=== PATIENT | male | born 2000 | race Caucasian/White ===

== ENCOUNTER 2020-07-06 10:00 | Outpatient (REF) | payer OTHER, SELFPAY ==
[2020-07-06 12:03] LABS: MANUAL DIFF FLAG NO
[2020-07-06 12:12] LABS: Basophils Percent Auto 0.9 % (0-2); Eosinophils Absolute Auto 0.1 X10*3/uL (0.0-0.4); Eosinophils Percent Auto 1.3 % (0-4); Hematocrit 43.6 % (42-52); Hemoglobin 14.6 g/dl (14.0-18.0); Imm Gran Abs Auto 0.01 X10*3/uL (0.00-0.03); Imm Gran Pct Auto 0.2 % (0.0-0.4); Lymphocytes Absolute Auto 1.5 X10*3/uL (1.2-4.9); Mean Corpuscular HGB Conc 33.5 g/dl (31.0-36.0); Mean Corpuscular Hemoglobin 30.5 pg (27.0-33.0); Mean Corpuscular Volume 91.2 fL (80-98); Mean Platelet Volume 10.5 fL (9.4-12.4); Monocytes Absolute Auto 0.4 X10*3/uL (0.1-1.2); Monocytes Percent Auto 7.7 % (2-11); Neutrophils Absolute Auto 2.8 X10*3/uL (2.0-8.3); Neutrophils Percent Auto 58.9 % (45-73); Platelet Count 273 X10*3/uL (160-400); Red Blood Count 4.78 X10*6/uL (4.60-5.80); Red Cell Distribution Width 12.3 % (11.0-16.0); White Blood Count 4.7 X10*3/uL (4.8-10.8)
[2020-07-06 12:41] LABS: Alanine Aminotransferase 15 U/L (0-40); Albumin Level 4.9 g/dL (3.5-5.0); Alkaline Phosphatase 68 U/L (39-117); Anion Gap 13 (12-20); Aspartate Amino Transferase 18 U/L (5-37); Bilirubin Total 0.5 mg/dL (0.0-1.0); Blood Urea Nitrogen 11 mg/dL (9-16); Calcium 9.9 mg/dL (8.4-10.2); Carbon Dioxide 27 mmol/L (22-29); Chloride 105 mmol/L (96-108); Cholesterol 163 mg/dL; Estimated Glomerular Filt Rate > 60; Glucose Fasting 83 mg/dL (60-99); HDL Cholesterol 34 mg/dL; LDL Cholesterol Calculated 115 mg/dl; Potassium 4.5 mmol/l (3.3-5.1); Sodium 140 mmol/L (135-145); Total Protein 7.5 g/dL (6.5-8.0); Triglycerides 73 mg/dL
[2020-07-06 13:07] LABS: Folate 12.2 ng/mL (> or = 4.0); Vitamin B12 414 pg/mL (200-900)
[2020-07-11 09:12] LABS: Levetiracetam Keppra 16.1 mcg/mL (12.0-46.0)
== END 2020-07-06 10:01 | disposition home or self-care (01) ==
LOC: HO.LAB 10:00
PROVIDERS: Absent Provider Internal Medicine; PCP Internal Medicine; Visit Provider Nurse Practitioner Family
DX: Z00.00 Encounter for general adult medical examination without abnormal findings (principal); E11.9 Type 2 diabetes mellitus without complications; R56.9 Unspecified convulsions; Z87.898 Personal history of other specified conditions
CPT/HCPCS: 36415; 80053; 80061; 80177; 82607; 82746; 85025

== ENCOUNTER 2020-10-09 09:10 | Outpatient (REF) | payer OTHER, SELFPAY ==
--- NOTE | ~2020-10-09 | MR_ITS ---
MR BRAIN WITHOUT AND WITH CONTRAST CLINICAL INFORMATION: Generalized seizure disorder. COMPARISON: None available TECHNIQUE: Multiplanar, multisequence MRI of the brain was obtained before and after the intravenous administration of 7.5 mL Gadavist. FINDINGS: There is no pathologic intracranial enhancement. There is the suggestion of nonenhancing increased signal on T2-weighted imaging within the hippocampi bilaterally without significant volume loss. There is no hydrocephalus, extra-axial surface collection, or herniation. The major flow voids at the skull base are preserved. There is no acute infarct on diffusion-weighted imaging. There is no intracranial hemorrhage on the gradient recalled echo acquisition. The midline structures are normal. The cerebellar tonsils are normally positioned. The cerebellum and brainstem are normal. The craniocervical junction is normal. Osseous marrow signal intensity is homogenous. The visualized soft tissues are unremarkable. There is a moderate sized fluid level within the right maxillary sinus and there is mild mucosal thickening within the ethmoid air cells bilaterally. The mastoid air cells are clear. Small retention cyst within the dominant right sphenoid sinus chamber. MR/MR head/brain wo/w con IMPRESSION: There is the suggestion of nonenhancing increased signal on T2-weighted imaging within the hippocampi bilaterally without significant volume loss. 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 Findings can be further assessed with 3 Joyce imaging and correlated for partial complex seizures.
== END 2020-10-09 09:11 | disposition home or self-care (01) ==
LOC: HO.MRI 09:10
PROVIDERS: Visit Provider Psychiatry & Neurology Neurology
DX: G40.309 Generalized idiopathic epilepsy and epileptic syndromes, not intractable, without status epilepticus (principal)
CPT/HCPCS: 70553; A9585

== ENCOUNTER 2021-04-24 10:35 | Emergency (ER) | payer OTHER, SELFPAY ==
--- NOTE | ~2021-04-24 | CT_ITS ---
EXAMINATION: CT HEAD WITHOUT CONTRAST CLINICAL INFORMATION: Severe headache. COMPARISON: None available at the moment for comparison. TECHNIQUE: Contiguous axial imaging was performed from the skull base to vertex without intravenous administration of contrast. This CT examination was performed using dose optimization techniques as appropriate, variously including the following: *Automated exposure control *Adjustment of mA and/or kV according to patient size (this includes techniques or standardized protocols for targeted exams where dose is matched to indication/reason for exam; i.e. extremities or head) *Use of iterative reconstruction technique DLP: 589.96 mGy-cm FINDINGS: There is no evidence of acute intracranial hemorrhage or territorial infarction. No abnormal mass effect or midline shift is seen. Spencer to white matter differentiation is well preserved. No extra-axial fluid collections are identified. The ventricles are normal in size. There is no abnormal attenuation within the brain parenchyma. The osseous structures and soft tissues are normal. The mastoid air cells are unremarkable. Mild mucoperiosteal thickening is present at the sphenoid sinus, consistent with mild sinusitis. CT/CT head/brain wo con IMPRESSION: No acute intracranial pathology. Mild sphenoidal sinusitis.
[2021-04-24 11:03] VITALS: BP 154/96; PULSE 83; RESP 24; TEMP 36.6; O2SAT 98; BMI 24.9
--- NOTE | 2021-04-24 11:51 | ED.HA ---
HPI - Headache General Chief Complaint: Headache Stated Complaint: headache Time Seen by Provider: 04/24/21 11:41 Source: patient and family (Mother) Mode of arrival: ambulatory History of Present Illness HPI Narrative: 20-year-old male came in for evaluation of sudden headache. 20-year-old male [place] the mall with his mother about an hour before coming to the emergency department started to have a sudden onset of headache, otherwise decline photophobia, no nausea, no vomiting, no neck pain or stiffness. Patient had headaches in the past but not that severe, patient also is known history of seizure, patient had a recent hospitalization at [facility] (records were requested). Patient declined using IV drugs, admits to smoking only marijuana. Related Data Previous Rx's Medication Instructions Recorded levetiracetam 500 mg tablet 500 mg PO BID #60 tab 07/28/20 amoxicillin 875 mg-potassium 1 tab PO BID #20 tab 04/24/21 clavulanate 125 mg tablet (Augmentin) Allergies Allergy/AdvReac Type Severity Reaction Status Date / Time No Known Allergies Allergy Verified 12/12/20 14:32 Review of Systems Review of Systems: All other systems are reviewed and are negative Constitutional: Reports as per HPI and Reports no additional constitutional complaints Eyes: Reports as per HPI and Reports no additional eye complaints Reports system reviewed and no additional complaints, except as documented Cardiovascular: Reports as per HPI and Reports no additional cardiovascular complaints Respiratory: Reports as per HPI and Reports no additional respiratory complaints Gastrointestinal: Reports as per HPI and Reports no additional gastrointestinal complaints Genitourinary: Reports no additional female genitourinary complaints Musculoskeletal: Reports no additional musculoskeletal complaints Skin/Breast: Reports system reviewed and no additional complaints, except as docu Psychiatric: Reports no additional psychiatric complaints Endocrine: Reports no additional endocrine complaints Hematologic/Lymphatic: Reports no additional hematologic/lymphatic complaints Allergic/Immunologic: Reports no additional allergic/immunologic complaints Reports system reviewed and no additional complaints, except as documented and Reports Abnormal speech present [facility] Past Medical History Medical History Seizure Surgical History No significant past surgical history Family History Family History Father No problems noted. Mother No problems noted. Social History Social History Housing: Apartment Alcohol intake: never Patient Tobacco Use Status: Never used Tobacco Second Hand Smoke Exposure: No Use of substances other than those prescribed or required for medical reasons: No Advance Directives: No Advance Directives Information Provided: No Current occupational status: employed Physical Exam Vital Signs: Vital Signs: Last Vital Signs Temp 97.9 F 04/24/21 11:03 Pulse 83 04/24/21 11:03 Resp 24 H 04/24/21 11:03 BP 154/96 H 04/24/21 11:03 Pulse Ox 98 04/24/21 11:03 Body Mass Index 24.9 Vital signs have been reviewed as appeared to be correct. Blood pressure normal. Heart rate normal. Respiration rate normal. Temperature normal. Oxygen saturation normal. Appearance: Alert. Oriented X3. No acute distress. Head: Normal external exam. Normocephalic. Atraumatic. No Austin signs noted. No raccoon eyes noted Eyes: PERRLA. EOMI. Conjunctiva and sclera normal. Eyelids normal. ENT: TM's Normal. Pharynx normal. Uvula midline. Moist mucous membranes. No trismus noted. No drooling noted. No muffled voice noted. Neck: Normal inspection. Neck supple. FROM. No adenopathy. Thyroid Normal. No meningeal signs. No neck mass noted. CVS: Normal heart rate and rhythm. Heart sound normal. No murmurs noted. Pulses normal throughout. Respiratory: No respiratory distress. Painless inspiration. Breath sounds normal. No wheezes/rales/rhonchi noted. Chest nontender. No accessory muscle usage noted or decreased air movement noted. Abdomen: Soft and nontender. Bowel sounds normal in all 4 quadrants. No distention noted. No organomegaly noted. No visible injury noted. Back: No CVA tenderness. Full range of motion noted. Skin: Skin warm and dry. Normal skin color. Normal skin turgor. No rashes/lesions/lacerations noted. Extremities: No lower extremity edema. Extremities exhibit normal range of motion. Extremities nontender. Neuro: Oriented X 3. Cranial nerve exam: II-XII are grossly intact No motor deficit. No sensory deficit. Reflexes normal. Course Course Course Narrative: 20-year-old male came in with his mom for evaluation of a sudden headache, patient recently diagnosed with new onset of seizure and require hospitalization at [facility] (to request for the medical record were faxed to [facility] several times with no response). Patient's blood workup revealed leukocytosis of 20,000 CT of the head showed no SAH, no acute intracranial pathology, mild sphenoidal sinusitis. Patient had a neurology appointment this morning and patient's medication of Keppra was increased to 1000 mg b.i.d. to control his seizure. Start the patient on Augmentin for sphenoidal sinusitis. MDM - Headache Lab Data Attestation: I reviewed the patient's lab results. Result diagrams: 04/24/21 12:02 04/24/21 12:02 Labs: Lab Results 04/24/21 04/24/21 Range/Units 12:02 12:02 WBC 20.1 H (4.8-10.8) X10*3/uL RBC 4.96 (4.60-5.80) X10*6/uL Hgb 15.1 (14.0-18.0) g/dl Hct 44.2 (42.0-52.0) % MCV 89.1 (80.0-98.0) fL MCH 30.4 (27.0-33.0) pg MCHC 34.2 (31.0-36.0) g/dl RDW 11.8 (11.0-16.0) % Plt Count 401 H (160-400) X10*3/uL MPV 9.8 (9.4-12.4) fL Immature Gran % (Auto) 0.6 H (0.0-0.4) % Neut % (Auto) 83.3 H (45-73) % Lymph % (Auto) 9.7 L (20-40) % Twiggs % (Auto) 5.9 (2-11) % Eos % (Auto) 0.2 (0-4) % Baso % (Auto) 0.3 (0-2) % Lymph # (Auto) 2.0 (1.2-4.9) X10*3/uL Twiggs # (Auto) 1.2 (0.1-1.2) X10*3/uL Eos # (Auto) 0.1 (0.0-0.4) X10*3/uL Baso # (Auto) 0.1 (0.0-0.2) X10*3/uL Abs Immat Gran (auto) 0.13 H (0.00-0.03) X10*3/uL Absolute Neuts (auto) 16.7 H (2.0-8.3) x10*3/uL Absolute Nucleated RBC 0.000 (0.0-0.012) X10*3/uL Nucleated RBC % (auto) 0.0 (0.0-0.2) /100WBC Sodium 137 (135-145) mmol/L Potassium 3.9 (3.3-5.1) mmol/L Chloride 102 (96-108) mmol/L Carbon Dioxide 25 (22-29) mmol/L Anion Gap 14 (12-20) BUN 14 (9-16) mg/dL Creatinine 0.87 (0.5-1.4) mg/dL Estim Creat Clear Calc 113.4 Estimated GFR > 60 Random Glucose 163 H (60-115) mg/dL Calcium 9.9 (8.4-10.2) mg/dL Lipase 23 (8-78) U/L Imaging Data CT scan - head: Radiologist's impression: No acute intracranial pathology. Mild sphenoidal sinusitis. Discharge Plan Discharge Clinical Impression: Headache, Sinusitis, Leukocytosis Patient Disposition: Home, Self-Care Instructions: Sinusitis (ED), Acute Headache (ED) Prescriptions: New amoxicillin-pot clavulanate [Augmentin] 875-125 mg tablet 1 tab PO BID Qty: 20 RF: 0 No Action levetiracetam 500 mg tablet 500 mg PO BID Qty: 60 RF: 8 Referrals: Clifford Garcia MD [Primary Care Provider] - 2 days
[2021-04-24] MEDS: 0.9 % Sodium Chloride 1,000 ML 999 ML IVCONT (12:05)
[2021-04-24] MEDS: ondansetron HCL 4 MG/2 ML VIAL IVPUSH (12:05)
[2021-04-24] MEDS: diphenhydrAMINE HCL 50 MG/ML VIAL 25 MG IVPUSH (12:05)
[2021-04-24 12:07] LABS: MANUAL DIFF FLAG NO
[2021-04-24 12:09] LABS: Basophils Absolute Auto 0.1 X10*3/uL (0.0-0.2); Basophils Percent Auto 0.3 % (0-2); Eosinophils Absolute Auto 0.1 X10*3/uL (0.0-0.4); Eosinophils Percent Auto 0.2 % (0-4); Hematocrit 44.2 % (42.0-52.0); Hemoglobin 15.1 g/dl (14.0-18.0); Imm Gran Abs Auto 0.13 X10*3/uL (0.00-0.03); Imm Gran Pct Auto 0.6 % (0.0-0.4); Lymphocytes Percent Auto 9.7 % (20-40); Mean Corpuscular HGB Conc 34.2 g/dl (31.0-36.0); Mean Corpuscular Hemoglobin 30.4 pg (27.0-33.0); Mean Corpuscular Volume 89.1 fL (80.0-98.0); Mean Platelet Volume 9.8 fL (9.4-12.4); Monocytes Absolute Auto 1.2 X10*3/uL (0.1-1.2); Monocytes Percent Auto 5.9 % (2-11); Neutrophils Absolute Auto 16.7 x10*3/uL (2.0-8.3); Neutrophils Percent Auto 83.3 % (45-73); Platelet Count 401 X10*3/uL (160-400); Red Blood Count 4.96 X10*6/uL (4.60-5.80); Red Cell Distribution Width 11.8 % (11.0-16.0); White Blood Count 20.1 X10*3/uL (4.8-10.8)
[2021-04-24 12:23] LABS: Anion Gap 14 (12-20); Blood Urea Nitrogen 14 mg/dL (9-16); Calcium 9.9 mg/dL (8.4-10.2); Carbon Dioxide 25 mmol/L (22-29); Chloride 102 mmol/L (96-108); Creatinine Clr Calc Pharmacy 113.4; Estimated Glomerular Filt Rate > 60; Glucose Random 163 mg/dL (60-115); Lipase 23 U/L (8-78); Potassium 3.9 mmol/L (3.3-5.1); Sodium 137 mmol/L (135-145)
[2021-04-24] MEDS: Butalb/Acetamin/Caff 50/325/40 TABLET 1 TAB PO (14:02)
[2021-04-24] MEDS: Acetaminophen 325 MG TABLET 650 MG PO (14:03)
== END 2021-04-24 15:30 | disposition home or self-care (01) ==
PROVIDERS: Emergency Provider Emergency Medicine; PCP Internal Medicine
DX: R51.9 Headache, unspecified (principal); J32.9 Chronic sinusitis, unspecified; D72.829 Elevated white blood cell count, unspecified
CPT/HCPCS: 36415; 70450; 80048; 83690; 85025; 96361; 96374; 96375; 99284; J1200; J2405

== ENCOUNTER 2022-10-28 13:00 | Outpatient (REF) | payer OTHER, SELFPAY ==
[2022-10-28 13:16] LABS: MANUAL DIFF FLAG NO
[2022-10-28 14:30] LABS: Basophils Absolute Auto 0.1 X10*3/uL (0.0-0.2); Basophils Percent Auto 0.7 % (0-2); Eosinophils Absolute Auto 0.2 X10*3/uL (0.0-0.4); Eosinophils Percent Auto 2.2 % (0-4); Hematocrit 43.4 % (42.0-52.0); Hemoglobin 14.6 g/dl (14.0-18.0); Imm Gran Abs Auto 0.03 X10*3/uL (0.00-0.03); Imm Gran Pct Auto 0.4 % (0.0-0.4); Lymphocytes Absolute Auto 1.8 X10*3/uL (1.2-4.9); Lymphocytes Percent Auto 27.2 % (20-40); Mean Corpuscular HGB Conc 33.6 g/dl (31.0-36.0); Mean Corpuscular Volume 95.2 fL (80.0-98.0); Mean Platelet Volume 10.7 fL (9.4-12.4); Monocytes Absolute Auto 0.8 X10*3/uL (0.1-1.2); Monocytes Percent Auto 11.8 % (2-11); Neutrophils Absolute Auto 3.9 x10*3/uL (2.0-8.3); Neutrophils Percent Auto 57.7 % (45-73); Platelet Count 276 X10*3/uL (160-400); Red Blood Count 4.56 X10*6/uL (4.60-5.80); Red Cell Distribution Width 13.7 % (11.0-16.0); White Blood Count 6.8 X10*3/uL (4.8-10.8)
[2022-10-28 15:19] LABS: Valproate 82.3 mcg/mL (50.0-100.0)
[2022-10-28 15:21] LABS: Alanine Aminotransferase 18 U/L (0-40); Albumin Level 4.4 g/dL (3.5-5.0); Alkaline Phosphatase 50 U/L (39-117); Anion Gap 12 (12-20); Aspartate Amino Transferase 18 U/L (5-37); Bilirubin Total 0.6 mg/dL (0.0-1.0); Blood Urea Nitrogen 11 mg/dL (9-16); Calcium 9.6 mg/dL (8.4-10.2); Carbon Dioxide 26 mmol/L (22-29); Chloride 107 mmol/L (96-108); Estimated Glomerular Filt Rate > 60; Glucose Random 67 mg/dL (60-115); Potassium 4.8 mmol/L (3.3-5.1); Sodium 140 mmol/L (135-145); Total Protein 6.8 g/dL (6.5-8.0)
== END 2022-10-28 13:01 | disposition home or self-care (01) ==
LOC: HO.LAB 13:00
PROVIDERS: PCP Internal Medicine; Visit Provider Nurse Practitioner Family
DX: R56.9 Unspecified convulsions (principal); Z79.899 Other long term (current) drug therapy
CPT/HCPCS: 36415; 80053; 80164; 82550; 85025

== ENCOUNTER 2023-05-27 14:13 | Outpatient (REF) | payer OTHER, SELFPAY ==
[2023-05-27 15:33] LABS: Valproate 92.4 mcg/mL (50.0-100.0)
[2023-05-27 15:34] LABS: Alanine Aminotransferase 11 U/L (0-40); Albumin Level 4.3 g/dL (3.5-5.0); Alkaline Phosphatase 44 U/L (39-117); Aspartate Amino Transferase 17 U/L (5-37); Bilirubin Direct 0.1 mg/dL (0.0-0.5); Bilirubin Total 0.3 mg/dL (0.0-1.0); Total Protein 6.8 g/dL (6.5-8.0)
== END 2023-05-27 14:14 | disposition home or self-care (01) ==
LOC: HO.LAB 14:13
PROVIDERS: PCP Internal Medicine; Visit Provider Psychiatry & Neurology Neurology
DX: G40.309 Generalized idiopathic epilepsy and epileptic syndromes, not intractable, without status epilepticus (principal)
CPT/HCPCS: 36415; 80076; 80164

== ENCOUNTER 2023-12-01 13:45 | Outpatient (AMB) | payer OTHER, SELFPAY ==
[2023-12-01 13:48] VITALS: BP 110/60; PULSE 80; O2SAT 98; BMI 24.7
--- NOTE | 2023-12-01 13:48 | MHC.PC.OV ---
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 Real Estate Office: Not Required per policy Accompanied by: Self / Same As Patient Allergies No Known Allergies Allergy (Verified 12/01/23 13:48) Medication List - Last Reconciled 12/02/23 by Clifford Garcia MD divalproex 500 mg PO BID divalproex ER mg PO BID Tobacco use date assessed: 12/01/23 Dental Screening Dental Screen Date: 12/01/23 Did you have a dental visit in the last 12 months?: No Did you have a dental problem in the last 6 months where you did not have access to dental care?: No Was dental information given to patient?: Patient has dentist HPI ANNUAL PE - NEEDS PHQ9 HPI Details sz disorder; sees neuro PFSH Medical History Seizure Surgical History No significant past surgical history Family History Father No problems noted. Mother No problems noted. Social History Housing: Apartment Alcohol intake: never Patient Tobacco Use Status: Never used Tobacco e-Cigarette/Vaping Use: Never Used Second Hand Smoke Exposure: No service: No Current occupational status: employed Cognitive needs: No Hearing needs: No Vision needs: Yes (glasses) Questionnaire PHQ-9 Over the last 2 weeks, how often have you been bothered by any of the following problems? 1. Little interest or pleasure in doing things: not at all 2. Feeling down, depressed, or hopeless: not at all 3. Trouble falling or staying asleep, or sleeping too much: not at all 4. Feeling tired or having little energy: not at all 5. Poor appetite or overeating: not at all 6. Feeling bad about yourself - or that you are a failure or have let yourself or your family down: not at all 7. Trouble concentrating on things, such as reading the newspaper or watching television: not at all 8. Moving or speaking so slowly that other people could have noticed. Or the opposite - being so fidgety or restless that you have been moving around a lot more than usual: not at all 9. Thoughts that you would be better off or of hurting yourself in some way: not at all Total score: 0 Depression Screening Interpretation: Negative Depression Screening Done: Yes 16053 - PHQ-9 Billing: Yes Source: Developed by Drs. Ben Osullivan, Jaqui Delgado, Garland Villa and colleagues, with an educational stuart from [employer]. Thrive Questionnaire Date Thrive assessed: 12/01/23 I am a: Patient What is your living situation today?: I have a steady place to live Within the past 12 months, did the food you bought not last and you didn't have the money to get more?: Never true Within the past 12 months, did you worry whether your food would run out before you got money to buy more?: Never true Do you have trouble paying for medicines?: No Do you have trouble getting transportation to medical appointments?: No Do you have trouble paying your heating and electricity bill?: No Do you have trouble taking care of your child, family member or friend?: No Do you have trouble with day-to-day activities such as bathing, preparing meals, shopping, managing finances, etc.?: No Are you currently unemployed and looking for a job?: No Are you interested in more education?: No Please select the resources that you would like help with: None THRIVE Score: 0 AUDIT C Alcohol Use Questionnaire (AUDIT-C) 1. How often do you have a drink containing alcohol?: Never Total Score: 0 Score Reviewed/Action Taken: No ROBYN-7 AMB Questionnaire ROBYN-7 Date ROBYN - 7 assessed: 12/01/23 Feeling nervous, anxious, or on edge: 0 = Not at all Not being able to stop or control worryin = Not at all Worrying too much about different things: 0 = Not at all Trouble relaxin = Not at all Being so restless that it is hard to sit still: 0 = Not at all Becoming easily annoyed or irritable: 0 = Not at all Feeling afraid as if something awful might happen: 0 = Not at all Total ROBYN-7 score (0-4 normal; 5-9 mild; 10-14 moderate; 15-21 severe): 0 Source: Developed by Drs. Ben Osullivan, Jaqui Delgado, Garland Villa and colleagues, with an educational stuart from [employer]. ROBYN-7 Assessment Billing ROBYN-7 Assessment Tool: ROBYN-7 Assessment 63567 Review of Systems Const Denies chills, Denies fatigue, Denies headache(s) and Denies weight loss Eyes Denies change in vision, Denies diplopia and Denies eye pain ENT Denies vertigo, Denies dizziness, Denies headache(s) and Denies nasal discharge Card Denies chest pain, Denies rapid heart rate and Denies dyspnea on exertion Resp Denies chest congestion, Denies cough, Denies pain with cough and Denies dyspnea on exertion GI Denies abdominal pain, Denies hematochezia and Denies change in bowel habits Musc Denies myalgias, Denies arthralgias and Denies joint swelling Skin/Breast Denies lesions and Denies unusual bruising Neuro Denies vertigo, Denies dizziness, Denies headache(s) and Denies focal weakness Endo Denies fatigue Physical exam (Primary Care) Vital Signs: Last Vital Signs Pulse 80 12/01/23 13:48 BP 110/60 12/01/23 13:48 Pulse Ox 98 12/01/23 13:48 Oxygen Delivery Method Room Air 12/01/23 13:48 BMI result Body Mass Index 24.7 Tobacco/Smoking Status: Tobacco use Status Tobacco use date assessed 12/01/23 12/01/23 13:49 Patient Tobacco Use Status Never used Tobacco 12/01/23 13:49 e-Cigarette/Vaping Use Never Used 12/01/23 13:49 PHQ-9: PHQ-9 Score PHQ-9: Total score 0 12/01/23 13:49 Depression Screening Interpretation: Negative Thrive Assessment: Date of Thrive Assessment Date Thrive assessed 12/01/23 12/01/23 13:49 Const General: cooperative, healthy appearing and no acute distress Orientation/consciousness: oriented to person, oriented to place and oriented to time HENMT Head: Yes normal to inspection, Yes normocephalic and Yes atraumatic Mouth: Normal oral and palatal mucosa present and tongue normal Throat: Yes posterior oropharynx normal and Yes uvula midline Eyes General: appearance normal, both eyes and all related structures Neck Neck: Yes normal visual inspection, Yes full ROM and Yes no lymphadenopathy Thyroid: Thyroid normal Carotids: normal carotid upstroke Chest Chest palpation & inspection: normal inspection of the chest Resp Effort & Inspection: normal respiratory effort and able to speak in complete sentences Auscultation: clear to auscultation bilaterally Cardio Jugular venous distension: no JVD Palpation: normal PMI Rate: regular rate Rhythm: regular rhythm Heart sounds: S1 normal heart sound present and S2 normal heart sound present GI Inspection: Yes normal to inspection Palpation (GI): Soft to palpation and No hepatosplenomegaly present Auscultation: normal bowel sounds General: Yes no CVA tenderness Back/Spine/Pelvis Back: no CVA tenderness Skin General skin exam: no rashes or lesions noted Neuro General: oriented to person, oriented to place and oriented to time Extrem General: Yes normal to inspection and Yes full ROM Assessment and Plan Assessment & Plan (1) Physical exam: Code(s): Z00.00 - Encounter for general adult medical examination without abnormal findings Plan: stable; do labs (2) Seizure: Code(s): R56.9 - Unspecified convulsions Plan: stable; per neuro;ogy Orders: Orders Complete Blood Count Auto Diff Today Z13.0 - Encounter for screening for diseases of the blood and blood-forming organs and certain disorders involving the immune mechanism Lipid Panel Today Z13.220 - Encounter for screening for lipoid disorders Comprehensive [place]. Panel Fast Today Z13.9 - Encounter for screening, unspecified Coding Level of Care Code Est Pt Prev Care 18-39y(00272) Diagnoses Physical exam Z00.00 Seizure R56.9 Additional Codes ROBYN-7 Assessment Billing - ROBYN-7 Assessment Tool: ROBYN-7 Assessment 22725 ([id number])
== END 2023-12-01 14:04 | disposition home or self-care (01) ==
PROVIDERS: PCP Internal Medicine; Visit Provider Internal Medicine
DX: Z00.00 Encounter for general adult medical examination without abnormal findings (principal); R56.9 Unspecified convulsions
CPT/HCPCS: 99395

== ENCOUNTER 2024-07-26 12:52 | Outpatient (AMB) | payer OTHER, SELFPAY ==
--- NOTE | 2024-07-26 12:59 | MHC.PC.OV ---
Vital Signs 07/26/24 13:01 Height 5 ft 4 in Weight 148 lb BMI 25.4 BP 120/60 Blood Pressure Location Lt brachial Position Sitting Temp 97.1 F Temp Source Skin Intake Visit Reasons: Multiple seizures/FMLA paperwork Intake Note: Patient is here to follow up on Multiple seizures and FMLA paperwork. Passenger Elevator Operator Required: No Photography Colorist: Present Accompanied by: Mother Allergies No Known Allergies Allergy (Verified 07/26/24 13:01) Medication List - Last Reconciled 07/26/24 by Clifford Garcia MD divalproex 500 mg PO BID divalproex ER mg PO BID lacosamide 200 mg PO BID Tobacco use date assessed: 07/26/24 Dental Screening Dental Screen Date: 07/26/24 Did you have a dental visit in the last 12 months?: No Did you have a dental problem in the last 6 months where you did not have access to dental care?: No Was dental information given to patient?: No HPI Multiple seizures/FMLA paperwork HPI Details has Sz disorder with poorly controlled Sz; has appt in [place] this month [facility] Medical History Seizure Surgical History No significant past surgical history Family History Father No problems noted. Mother No problems noted. Social History (Updated 07/26/24 @ 13:05 by JESSICA Landa) Housing: Apartment Alcohol intake: never Patient Tobacco Use Status: Never used Tobacco e-Cigarette/Vaping Use: Never Used Second Hand Smoke Exposure: No Substance Use Type: Marijuana service: No Current occupational status: employed Cognitive needs: No Hearing needs: No Vision needs: Yes (glasses) Questionnaire PHQ-9 Over the last 2 weeks, how often have you been bothered by any of the following problems? 1. Little interest or pleasure in doing things: not at all 2. Feeling down, depressed, or hopeless: not at all 3. Trouble falling or staying asleep, or sleeping too much: not at all 4. Feeling tired or having little energy: not at all 5. Poor appetite or overeating: not at all 6. Feeling bad about yourself - or that you are a failure or have let yourself or your family down: not at all 7. Trouble concentrating on things, such as reading the newspaper or watching television: not at all 8. Moving or speaking so slowly that other people could have noticed. Or the opposite - being so fidgety or restless that you have been moving around a lot more than usual: not at all 9. Thoughts that you would be better off or of hurting yourself in some way: not at all Total score: 0 Depression Screening Interpretation: Negative Depression Screening Done: Yes Source: Developed by Drs. Ben Osullivan, Jaqui Delgado, Garland Villa and colleagues, with an educational stuart from [employer]. Thrive Questionnaire Date Thrive assessed: 07/26/24 I am a: Patient What is your living situation today?: I have a steady place to live Within the past 12 months, did the food you bought not last and you didn't have the money to get more?: Never true Within the past 12 months, did you worry whether your food would run out before you got money to buy more?: Never true Do you have trouble paying for medicines?: No Do you have trouble getting transportation to medical appointments?: No Do you have trouble paying your heating and electricity bill?: No Do you have trouble taking care of your child, family member or friend?: No Do you have trouble with day-to-day activities such as bathing, preparing meals, shopping, managing finances, etc.?: No Are you currently unemployed and looking for a job?: No Are you interested in more education?: No Please select the resources that you would like help with: None Currently or been in a relationship where the following occur: No concerns reported THRIVE Score: 0 AUDIT C Alcohol Use Questionnaire (AUDIT-C) 1. How often do you have a drink containing alcohol?: Never Total Score: 0 ROBYN-7 AMB Questionnaire ROBYN-7 Date ROBYN - 7 assessed: 07/26/24 Feeling nervous, anxious, or on edge: 0 = Not at all Not being able to stop or control worryin = Not at all Worrying too much about different things: 0 = Not at all Trouble relaxin = Not at all Being so restless that it is hard to sit still: 0 = Not at all Becoming easily annoyed or irritable: 0 = Not at all Feeling afraid as if something awful might happen: 0 = Not at all Total ROBYN-7 score (0-4 normal; 5-9 mild; 10-14 moderate; 15-21 severe): 0 Source: Developed by Drs. Ben Osullivan, Jaqui Delgado, Garland Villa and colleagues, with an educational stuart from [employer]. Review of Systems Const Denies chills, Denies headache(s) and Denies weight loss ENT Denies headache(s) Card Denies chest pain, Denies syncope, Denies irregular heart rhythm and Denies dyspnea Resp Denies chest congestion, Denies cough and Denies dyspnea GI Denies abdominal pain, Denies change in stool character, Denies nausea and Denies vomiting Musc Denies deformity and Denies joint swelling Neuro Denies syncope and Denies headache(s) Physical exam (Primary Care) Vital Signs: Last Vital Signs Temp 97.1 F 07/26/24 13:01 BP 120/60 07/26/24 13:01 BMI result Body Mass Index 25.4 Tobacco/Smoking Status: Tobacco use Status Tobacco use date assessed 07/26/24 07/26/24 13:07 Patient Tobacco Use Status Never used Tobacco 07/26/24 13:07 e-Cigarette/Vaping Use Never Used 07/26/24 13:07 PHQ-9: PHQ-9 Score PHQ-9: Total score 0 07/26/24 13:27 Depression Screening Interpretation: Negative Thrive Assessment: Date of Thrive Assessment Date Thrive assessed 07/26/24 07/26/24 13:07 Currently or been in a relationship where the following occur: No concerns reported Const General: cooperative, comfortable, no acute distress and alert Neck Neck: Yes no lymphadenopathy Thyroid: Thyroid normal Resp Effort & Inspection: normal respiratory effort Auscultation: clear to auscultation bilaterally Percussion: percussion normal Cardio Jugular venous distension: no JVD Palpation: normal PMI Rate: regular rate Rhythm: regular rhythm Heart sounds: S1 normal heart sound present and S2 normal heart sound present GI Inspection: Yes normal to inspection Palpation (GI): No hepatosplenomegaly present Skin General skin exam: no rashes or lesions noted Extrem General: Yes no clubbing, cyanosis or edema Coding Level of Care Code Est Pt Level 3 (16659) Diagnoses Seizure R56.9 Assessment & Plan Assessment & Plan (1) Seizure: Code(s): R56.9 - Unspecified convulsions Category: Medical Plan: stable; as per neuro
[2024-07-26 13:01] VITALS: BP 120/60; TEMP 36.2; BMI 25.4
== END 2024-07-26 13:26 | disposition home or self-care (01) ==
PROVIDERS: PCP Internal Medicine; Visit Provider Internal Medicine
DX: R56.9 Unspecified convulsions (principal)

== ENCOUNTER → 2024-07-26 12:52 | Outpatient (BNVA) | payer OTHER, SELFPAY | PROVIDERS: PCP Internal Medicine; Visit Provider Internal Medicine | DX: R56.9 Unspecified convulsions (principal) | CPT/HCPCS: 99212 ==

== ENCOUNTER 2024-10-18 12:59 | Outpatient (REF) | payer OTHER, SELFPAY ==
--- OUTSIDE RECORDS SUMMARY | 2024-10-19 12:27 | XMS_ITS | Clinical Summary ---
Author Organization [address] [facility] Address [address] [place] [address] Phone Care Team Providers Care Wellness Manager Name Role Phone Physician, No Pcp Primary [...] age to complete this topic Care Teams Wellness Manager Relationship Specialty Start Date End Date Physician, No Pcp PCP - General 04/19/24
== END 2024-10-18 13:00 | disposition home or self-care (01) ==
LOC: HO.LAB 12:59
DX: R56.9 Unspecified convulsions (principal)
CPT/HCPCS: 99212

== ENCOUNTER 2024-10-18 12:59 | Outpatient (AMB) | payer OTHER, SELFPAY ==
--- NOTE | 2024-10-18 13:13 | MHC.PC.OV ---
Vital Signs 10/18/24 13:15 Height 5 ft 4 in Weight 14 lb 2 oz BMI 2.4 BP 110/70 Blood Pressure Location Lt brachial Position Sitting Pulse 72 Pulse Source Pulse Oximeter Temp 97.7 F Temp Source Temporal Artery Scan Pulse Oximetry (%) 98 Oxygen Delivery Method Room Air Intake Visit Reasons: VASYL DR Garcia Intake Note: Patient is here today for VASYL from Dr Garcia Hspt Tutor Required: No Lead Performance Support Analyst: Present Accompanied by: Mother Allergies No Known Allergies Allergy (Verified 10/18/24 13:22) Medication List - Last Reconciled 10/18/24 by GENESIS Woody divalproex 500 mg PO BID divalproex ER mg PO BID lacosamide 200 mg PO BID perampanel (Fycompa) 2 mg PO DAILY Tobacco use date assessed: 10/18/24 Dental Screening Dental Screen Date: 07/26/[address] Garcia HPI Details The patient is transitioning care from Dr. Garcia, who retired The patient is a 24-year-old male presenting for follow-up concerning his generalized seizure disorder. The seizures have been ongoing since age 19, usually presenting without known triggers or antecedent trauma. They predominantly manifest as generalized convulsions, though focal seizures are noted to occur sporadically. He experiences rare premonitory symptoms including sensations of d?j?-vu and involuntary lip-chewing. A recent seizure occurred four days ago amidst a routine activity at home, resulting in disorientation and involuntary behavior. Despite medical interventions including diagnostic MRI and EEG, the etiology remains unclear. Adjustments in his seizure management regimen involve an increase in lacosamide dose and initiation of an emergency nasal spray. The patient has significantly minimized alcohol intake from previously heavy usage, recognizing its potential impact on seizure exacerbation. His current lifestyle includes moderate alcohol consumption correlating with reduced seizure frequency. Stress and insufficient sleep are identified as possible exacerbating factors, though recent modifications have yielded improved control over his condition. The patient has been consulting Dr. Celine Crocker in [place], who prescribed Nayzilam for him. He has following up appt on 11/10/24. [facility] Medical History Seizure Surgical History No significant past surgical history Family History Father No problems noted. Mother No problems noted. Social History (Updated 10/18/24 @ 13:20 by JESSICA Landa) Housing: Apartment Alcohol intake: never Patient Tobacco Use Status: Never used Tobacco e-Cigarette/Vaping Use: Currently Using Second Hand Smoke Exposure: No Substance Use Type: Marijuana service: No Current occupational status: employed Cognitive needs: No Hearing needs: No Vision needs: Yes (glasses) Questionnaire PHQ-9 Over the last 2 weeks, how often have you been bothered by any of the following problems? 1. Little interest or pleasure in doing things: several days 2. Feeling down, depressed, or hopeless: not at all 3. Trouble falling or staying asleep, or sleeping too much: more than half the days 4. Feeling tired or having little energy: not at all 5. Poor appetite or overeating: not at all 6. Feeling bad about yourself - or that you are a failure or have let yourself or your family down: more than half the days 7. Trouble concentrating on things, such as reading the newspaper or watching television: not at all 8. Moving or speaking so slowly that other people could have noticed. Or the opposite - being so fidgety or restless that you have been moving around a lot more than usual: not at all 9. Thoughts that you would be better off or of hurting yourself in some way: not at all Total score: 5 Depression Screening Interpretation: Positive Depression Screening Done: Yes Source: Developed by Drs. Ben Osullivan, Jaqui Delgado, Garland Villa and colleagues, with an educational stuart from [employer]. Thrive Questionnaire Date Thrive assessed: 07/26/24 I am a: Patient What is your living situation today?: I have a steady place to live Within the past 12 months, did the food you bought not last and you didn't have the money to get more?: Sometimes True Within the past 12 months, did you worry whether your food would run out before you got money to buy more?: Sometimes True Do you have trouble paying for medicines?: No Do you have trouble getting transportation to medical appointments?: No Do you have trouble paying your heating and electricity bill?: I choose not to answer this question Do you have trouble taking care of your child, family member or friend?: I choose not to answer this question Do you have trouble with day-to-day activities such as bathing, preparing meals, shopping, managing finances, etc.?: No Are you currently unemployed and looking for a job?: Yes Are you interested in more education?: No Please select the resources that you would like help with: Food Currently or been in a relationship where the following occur: No concerns reported THRIVE Score: 2 AUDIT C Alcohol Use Questionnaire (AUDIT-C) 1. How often do you have a drink containing alcohol?: 2-4 times a month 2. How many drinks containing alcohol do you have on a typical day when you are drinking?: 5 or 6 3. How often do you have six or more drinks on one occasion?: Monthly Total Score: 6 ROBYN-7 AMB Questionnaire ROBYN-7 Date ROBYN - 7 assessed: 10/18/24 Feeling nervous, anxious, or on edge: 2 = More than half the days Not being able to stop or control worryin = Several days Worrying too much about different things: 1 = Several days Trouble relaxin = Several days Being so restless that it is hard to sit still: 3 = Nearly every day Becoming easily annoyed or irritable: 0 = Not at all Feeling afraid as if something awful might happen: 1 = Several days Total ROBYN-7 score (0-4 normal; 5-9 mild; 10-14 moderate; 15-21 severe): 9 Source: Developed by Drs. Ben Osullivan, Jaqui Delgado, Garland Villa and colleagues, with an educational stuart from [employer]. Review of Systems Const Denies headache(s) Eyes Denies loss of vision ENT Denies vertigo, Denies dizziness, Denies headache(s) and Denies sore throat Card Denies chest pain, Denies leg edema and Denies lightheadedness Resp Denies cough, Denies hemoptysis and Denies wheezing GI Denies abdominal pain, Denies melena, Denies constipation, Denies diarrhea and Denies vomiting Denies dysuria, Denies urinary frequency and Denies urinary urgency Musc Denies arthralgias, Denies joint swelling, Denies numbness and Denies tingling Neuro Denies Abnormal speech present, Reports behavioral changes (After seizures), Denies vertigo, Denies dizziness, Denies headache(s), Denies loss of vision, Denies memory loss, Denies numbness, Reports convulsions (Intermittent seizures) and Denies tingling Psych Denies anxiety, Reports behavioral changes (After seizures), Denies depression, Denies memory loss and Denies panic attacks Dakota/Lymph Denies easy bleeding and Denies easy bruising Aller/Immun Denies wheezing Physical exam (Primary Care) Vital Signs: Last Vital Signs Temp 97.7 F 10/18/24 13:15 Pulse 72 10/18/24 13:15 BP 110/70 10/18/24 13:15 Pulse Ox 98 10/18/24 13:15 Oxygen Delivery Method Room Air 10/18/24 13:15 BMI result Body Mass Index 2.4 Tobacco/Smoking Status: Tobacco use Status Tobacco use date assessed 10/18/24 10/18/24 13:21 Patient Tobacco Use Status Never used Tobacco 10/18/24 13:20 e-Cigarette/Vaping Use Currently Using 10/18/24 13:21 PHQ-9: PHQ-9 Score PHQ-9: Total score 5 10/18/24 13:46 Depression Screening Interpretation: Positive Thrive Assessment: Date of Thrive Assessment Date Thrive assessed 07/26/24 10/18/24 13:14 Currently or been in a relationship where the following occur: No concerns reported Const General: healthy appearing, no acute distress, alert and awake Nutritional Appearance: well nourished Orientation/consciousness: oriented to person, oriented to place and oriented to time HENMT Ears: TM's normal bilaterally General nose exam: Normal nasal mucous membranes and turbinates present Eyes Conjunctivae: conjunctivae normal Sclerae: sclerae normal Pupils: Equal, round and reactive pupils present Neck Neck: Yes no lymphadenopathy and Yes no JVD Thyroid: Thyroid normal Carotids: no bruits Resp Effort & Inspection: normal respiratory effort and not tachypneic Auscultation: no crackles, no rales, no rhonchi and no wheezes Cardio Rate: regular rate Rhythm: regular rhythm Heart sounds: no murmurs and normal S1 and S2 GI Palpation (GI): Soft to palpation, nontender, no hepatomegaly and no splenomegaly Auscultation: normal bowel sounds Skin General skin exam: no rashes or lesions noted and dry skin Neuro General: oriented to person, oriented to place and oriented to time Cranial nerves: Yes Equal, round and reactive pupils present Speech: No Abnormal speech present Gait exam (Neuro): Normal gait present Motor exam (neuro): no tremor noted Extrem Right upper extremity: full ROM Left upper extremity: full ROM Right lower extremity: full ROM; no edema Left lower extremity: full ROM; no edema Psych Mental Status: mental status grossly normal Speech and movement: Normal speech and movement present Affect: normal affect Attitude: cooperative Thought process: Normal thought process present Coding Level of Care Code Est Pt Level 3 (87696) Diagnoses Seizure R56.9 Time Spent (min) 33 Assessment & Plan Assessment & Plan (1) Seizure: Code(s): R56.9 - Unspecified convulsions Category: Medical Plan During the visit, discussions focused on the management of the patient's generalized seizure disorder. The regimen now includes an elevated dose of lacosamide and an emergency nasal spray for prolonged seizures. We emphasized the importance of additional monitoring including a potential inpatient Video EEG study during an upcoming [place] neurology appointment to better understand the origin and nature of his seizures. Additionally, the importance of minimizing stressors and maintaining a consistent sleep schedule was stressed. Ongoing alcohol use was discussed, which increases the chance of having seizures. The patient will remain vigilant for any medication side effects and stay responsive to any triggers or interventions that need addressing. Patient was informed and verbally consented to the use of an ambient scribe for clinic note documentation during this visit. Orders: Orders Complete Blood Count Auto Diff 10/19/24 R56.9 - Unspecified convulsions, Z00.00 - Encounter for general adult medical examination without abnormal findings Lipid Panel 10/19/24 R56.9 - Unspecified convulsions, Z00.00 - Encounter for general adult medical examination without abnormal findings TSH reflex Free T4 10/19/24 R56.9 - Unspecified convulsions, Z00.00 - Encounter for general adult medical examination without abnormal findings Glucose Fasting 10/19/24 R56.9 - Unspecified convulsions, Z00.00 - Encounter for general adult medical examination without abnormal findings Comprehensive Taylor. Panel Fast 10/19/24 R56.9 - Unspecified convulsions, Z00.00 - Encounter for general adult medical examination without abnormal findings UA CC w/rflx Micro + Cult 10/19/24 R56.9 - Unspecified convulsions, Z00.00 - Encounter for general adult medical examination without abnormal findings Vitamin D 25-OH Total 10/19/24 R56.9 - Unspecified convulsions, Z00.00 - Encounter for general adult medical examination without abnormal findings Patient Instructions: - Continue current medication regimen as prescribed. - Use the nasal spray only as directed for prolonged seizures. - Attend your neurologist appointment in [place] for further evaluation. - stress reduction of alcohol intake - Stay vigilant for any new or worsening seizure activities. - Follow up with any new concerns or questions about your seizure disorder. - Ensure proper safety measures are in place when alone to prevent injury during seizures. Will order labs and have the patient follow in 3 months
[2024-10-18 13:15] VITALS: BP 110/70; PULSE 72; TEMP 36.5; O2SAT 98
--- OUTSIDE RECORDS SUMMARY | 2024-10-18 14:20 | XMS_ITS | Clinical Summary ---
Author Organization [address] [facility] Address [address] [place] [address] Phone Care Team Providers Care Bead Builder Name Role Phone Physician, No Pcp Primary Care Provider Unavaila ble Social History Tobacco Use Types Packs/Day Years Used Date Smoking Tobacco: Never Assessed Sex and Gender Information Value Date Recorded Sex Assigned at Not on file Legal Sex Male 2:15 AM EST Gender Identity Not on file Sexual Orientation Not on file Plan of Treatment Health Maintenance Due Date Last Done Comments DTaP,Tdap,and Td Vaccines (1 - Tdap) 2019 Hepatitis B Vaccines (1 of 3 - 19+ 3-dose series) 2019 Depression Screening 05/19/2022 HIV Screening 05/19/2022 Hepatitis C Screening 05/19/2022 Social Influencers of Health Screening 05/19/2022 COVID-19 Vaccine (2023-2 5 season) 2024 Influenza Vaccine (Season Ended) 2025 Meningococcal ACWY Vaccine Completed 11/05/2016 HPV Vaccines Completed 10/22/2017, 05/12/2017, 11/05/2016 HIB Vaccines Aged Out No longer eligi ble based on patient's age to complete this topic Hepatitis A Vaccines Aged Out No long er eligible based on patient's age to complete this topic IPV Vaccines Aged Out No longer eligi ble based on patient's age to complete this topic MMR Vaccines Aged Out No longer eligi ble based on patient's age to complete this topic Meningococcal B Vaccine Aged Out No l onger eligible based on patient's age to complete this topic Pneumococcal Vaccine: Pediatrics (0 to 5 Years) and At-Risk Patients (6 to 64 Years) Aged Out No longer eligible b ased on patient's age to complete this topic RSV Immunization Patients Under 20 months Aged Out No longer eligible b ased on patient's age to complete this topic Varicella Vaccines Aged Out No longer eligible based on patient's age to complete this topic Care Teams Bead Builder Relationship Specialty Start Date End Date Physician, No Pcp PCP - General 04/19/24
== END 2024-10-18 13:50 | disposition home or self-care (01) ==
LOC: HO.HMCH 13:00
PROVIDERS: PCP Internal Medicine
DX: R56.9 Unspecified convulsions (principal)

== ENCOUNTER 2024-10-19 10:52 | Outpatient (REF) | payer OTHER, SELFPAY ==
[2024-10-19 11:04] LABS: MANUAL DIFF FLAG NO
[2024-10-19 11:32] LABS: Basophils Percent Auto 0.2 % (0-2); Eosinophils Absolute Auto 0.1 X10*3/uL (0.0-0.4); Eosinophils Percent Auto 0.8 % (0-4); Hematocrit 39.4 % (42.0-52.0); Hemoglobin 13.6 g/dl (14.0-18.0); Imm Gran Abs Auto 0.02 X10*3/uL (0.00-0.03); Imm Gran Pct Auto 0.3 % (0.0-0.4); Lymphocytes Absolute Auto 1.5 X10*3/uL (1.2-4.9); Lymphocytes Percent Auto 25.1 % (20-40); Mean Corpuscular HGB Conc 34.5 g/dl (31.0-36.0); Mean Corpuscular Hemoglobin 32.5 pg (27.0-33.0); Mean Platelet Volume 10.5 fL (9.4-12.4); Monocytes Absolute Auto 0.5 X10*3/uL (0.1-1.2); Neutrophils Absolute Auto 3.8 x10*3/uL (2.0-8.3); Neutrophils Percent Auto 64.6 % (45-73); Platelet Count 246 X10*3/uL (160-400); Red Blood Count 4.19 X10*6/uL (4.60-5.80); Red Cell Distribution Width 12.9 % (11.0-16.0); White Blood Count 5.9 X10*3/uL (4.8-10.8)
[2024-10-19 11:44] LABS: Appearance Urine Clear; Color Urine Yellow; Glucose Urine UA Negative (Negative); Leukocyte Esterase Urine Negative (Negative); Nitrite Urine Negative (Negative); PH 7.5 (5.0-9.0); Urine Blood Negative (Negative); Urine Ketones Trace mg/dL (Negative); Urine Protein Trace mg/dL (Neg-Trace)
[2024-10-19 12:25] LABS: TSH reflex Free T4 0.66 uIU/mL (0.32-4.0); Vitamin D 25-OH Total 13.1 ng/mL (>30)
[2024-10-19 18:14] LABS: Alanine Aminotransferase 45 U/L (0-40); Albumin Level 4.5 g/dL (3.5-5.0); Alkaline Phosphatase 41 U/L (39-117); Anion Gap 12 (12-20); Aspartate Amino Transferase 57 U/L (5-37); Bilirubin Total 0.6 mg/dL (0.0-1.0); Blood Urea Nitrogen 10 mg/dL (9-16); Calcium 9.3 mg/dL (8.4-10.2); Carbon Dioxide 25 mmol/L (22-29); Chloride 107 mmol/L (96-108); Cholesterol 159 mg/dL (<200); Estimated Glomerular Filt Rate > 60; Glucose Fasting 89 mg/dL (60-99); HDL Cholesterol 36 mg/dL (>40); LDL Cholesterol Calculated 106 mg/dL (<100); Potassium 4.2 mmol/L (3.3-5.1); Sodium 140 mmol/L (135-145); Total Protein 7.1 g/dL (6.5-8.0); Triglycerides 87 mg/dL (<150)
== END 2024-10-19 10:53 | disposition home or self-care (01) ==
LOC: HO.LAB 10:52
PROVIDERS: Internal Medicine
DX: Z00.00 Encounter for general adult medical examination without abnormal findings (principal); Z13.0 Encounter for screening for diseases of the blood and blood-forming organs and certain disorders involving the immune mechanism; Z13.220 Encounter for screening for lipoid disorders; R56.9 Unspecified convulsions
CPT/HCPCS: 36415; 80053; 80061; 81003; 82306; 84443; 85025

== ENCOUNTER 2025-01-18 10:42 | Outpatient (AMB) | payer OTHER, SELFPAY ==
[2025-01-18 10:44] VITALS: BP 118/72; PULSE 84; RESP 18; TEMP 36.3; O2SAT 96; BMI 25.8
--- NOTE | 2025-01-18 10:44 | A.OFFPC_ITS ---
Vital Signs 01/18/25 10:44 Height 5 ft 4 in Weight 150 lb 8 oz BMI 25.8 BP 118/72 Blood Pressure Location Lt brachial Position Sitting Respiration 18 Pulse 84 Pulse Source Pulse Oximeter Temp 97.3 F Temp Source Temporal Artery Scan Pulse Oximetry (%) 96 Oxygen Delivery Method Room Air Intake Visit Reasons: seizure d/o Histotechnician Required: No Accompanied by: Self / Same As Patient Allergies No Known Allergies Allergy (Verified 01/18/25 11:17) Medication List - Last Reconciled 01/18/25 by GENESIS Woody divalproex 500 mg PO BID divalproex ER mg PO BID lacosamide 200 mg PO BID midazolam (Nayzilam) intranasal perampanel (Fycompa) 2 mg PO DAILY Tobacco use date assessed: 01/18/25 Dental Screening Dental Screen Date: 01/18/25 Did you have a dental visit in the last 12 months?: No Did you have a dental problem in the last 6 months where you did not have access to dental care?: No Was dental information given to patient?: Patient has dentist HPI seizure d/o HPI Details The patient is a 24-year-old male presenting with a seizure disorder. He reports being seizure-free for almost three-four months, which is a significant improvement. The patient visited a neurologist in [place] on the of the previous month, where a nasal spray was prescribed as part of his management plan. The patient has a history of anemia, described as slight, with a lower than normal blood count. Additionally, his liver enzymes are slightly elevated, which may be related to alcohol consumption. He consumes alcohol once a week on Saturdays, which could be contributing to the liver enzyme elevation. The osvaldo mancuso reports that he is drinking about same amount of alcohol as he was before, but reluctant to give a number. The patient also has a deficiency in vitamin D, likely due to insufficient sunlight exposure in his area. He has been advised to take a vitamin D supplement to address this deficiency. The patient experiences sleep disturbances, which he attributes to his ADHD. He has tried melatonin in the past, but it was ineffective in providing sustained sleep. Despite medical interventions including diagnostic MRI and EEG, the etiology remains unclear. Adjustments in his seizure management regimen involve an increase in lacosamide dose and initiation of an emergency nasal spray. The patient has significantly minimized alcohol intake from previously heavy usage, recognizing its potential impact on seizure exacerbation. His current lifestyle includes moderate alcohol consumption correlating with reduced seizure frequency. Stress and insufficient sleep are identified as possible exacerbating factors, though recent modifications have yielded improved control over his condition. The patient has been consulting Dr. Celine Crocker in [place], who prescribed Nayzilam for him. He has following up appt on 11/10/24. [facility] Medical History Seizure Surgical History No significant past surgical history Family History Father No problems noted. Mother No problems noted. Social History Housing: Apartment Alcohol intake: never Patient Tobacco Use Status: Never used Tobacco e-Cigarette/Vaping Use: Currently Using Second Hand Smoke Exposure: No Substance Use Type: Marijuana service: No Current occupational status: employed Cognitive needs: No Hearing needs: No Vision needs: Yes (glasses) Questionnaire PHQ-9 Over the last 2 weeks, how often have you been bothered by any of the following problems? 1. Little interest or pleasure in doing things: several days 2. Feeling down, depressed, or hopeless: not at all 3. Trouble falling or staying asleep, or sleeping too much: more than half the days 4. Feeling tired or having little energy: not at all 5. Poor appetite or overeating: not at all 6. Feeling bad about yourself - or that you are a failure or have let yourself or your family down: more than half the days 7. Trouble concentrating on things, such as reading the newspaper or watching television: not at all 8. Moving or speaking so slowly that other people could have noticed. Or the opposite - being so fidgety or restless that you have been moving around a lot more than usual: not at all 9. Thoughts that you would be better off or of hurting yourself in some way: not at all Total score: 5 Depression Screening Interpretation: Positive Depression Screening Done: Yes Source: Developed by Drs. Ben Osullivan, Jaqui Delgado, Garland Villa and colleagues, with an educational stuart from [employer]. Thrive Questionnaire Date Thrive assessed: 01/18/25 I am a: Patient What is your living situation today?: I have a steady place to live Within the past 12 months, did the food you bought not last and you didn't have the money to get more?: Sometimes True Within the past 12 months, did you worry whether your food would run out before you got money to buy more?: Sometimes True Do you have trouble paying for medicines?: No Do you have trouble getting transportation to medical appointments?: No Do you have trouble paying your heating and electricity bill?: I choose not to answer this question Do you have trouble taking care of your child, family member or friend?: I choose not to answer this question Do you have trouble with day-to-day activities such as bathing, preparing meals, shopping, managing finances, etc.?: No Are you currently unemployed and looking for a job?: Yes Are you interested in more education?: No Please select the resources that you would like help with: Food Currently or been in a relationship where the following occur: No concerns reported THRIVE Score: 2 AUDIT C Alcohol Use Questionnaire (AUDIT-C) 1. How often do you have a drink containing alcohol?: 2-4 times a month 2. How many drinks containing alcohol do you have on a typical day when you are drinking?: 5 or 6 3. How often do you have six or more drinks on one occasion?: Monthly Total Score: 6 ROBYN-7 AMB Questionnaire ROBYN-7 Date ROBYN - 7 assessed: 01/18/25 Feeling nervous, anxious, or on edge: 2 = More than half the days Not being able to stop or control worryin = Several days Worrying too much about different things: 1 = Several days Trouble relaxin = Several days Being so restless that it is hard to sit still: 3 = Nearly every day Becoming easily annoyed or irritable: 0 = Not at all Feeling afraid as if something awful might happen: 1 = Several days Total ROBYN-7 score (0-4 normal; 5-9 mild; 10-14 moderate; 15-21 severe): 9 Source: Developed by Jaqui Arguelles B.W. Danny, Garland Villa and colleagues, with an educational stuart from [employer]. Review of Systems Const Denies headache(s) Eyes Denies loss of vision ENT Denies vertigo, Denies dizziness, Denies headache(s) and Denies sore throat Card Denies chest pain, Denies leg edema and Denies lightheadedness Resp Denies cough, Denies hemoptysis and Denies wheezing GI Denies abdominal pain, Denies melena, Denies constipation, Denies diarrhea and Denies vomiting Denies dysuria, Denies urinary frequency and Denies urinary urgency Musc Denies arthralgias, Denies joint swelling, Denies numbness and Denies tingling Neuro Denies Abnormal speech present, Denies behavioral changes, Denies vertigo, Denies dizziness, Denies headache(s), Denies loss of vision, Denies memory loss, Denies numbness and Denies tingling Psych Denies anxiety, Denies behavioral changes, Denies depression, Denies memory loss and Denies panic attacks Dakota/Lymph Denies easy bleeding and Denies easy bruising Aller/Immun Denies wheezing Physical exam (Primary Care) Vital Signs: Last Vital Signs Temp 97.3 F 01/18/25 10:44 Pulse 84 01/18/25 10:44 Resp 18 01/18/25 10:44 BP 118/72 01/18/25 10:44 Pulse Ox 96 01/18/25 10:44 Oxygen Delivery Method Room Air 01/18/25 10:44 BMI result Body Mass Index 25.8 Tobacco/Smoking Status: Tobacco use Status Tobacco use date assessed 01/18/25 01/18/25 10:55 Patient Tobacco Use Status Never used Tobacco 01/18/25 10:55 e-Cigarette/Vaping Use Currently Using 01/18/25 10:55 PHQ-9: PHQ-9 Score PHQ-9: Total score 5 01/20/25 08:11 Depression Screening Interpretation: Positive Thrive Assessment: Date of Thrive Assessment Date Thrive assessed 01/18/25 01/18/25 10:55 Currently or been in a relationship where the following occur: No concerns reported Const General: healthy appearing, no acute distress, alert and awake Nutritional Appearance: well nourished Orientation/consciousness: oriented to person, oriented to place and oriented to time HENMT Ears: TM's normal bilaterally General nose exam: Normal nasal mucous membranes and turbinates present Eyes Conjunctivae: conjunctivae normal Sclerae: sclerae normal Pupils: Equal, round and reactive pupils present Neck Neck: Yes no lymphadenopathy and Yes no JVD Thyroid: Thyroid normal Carotids: no bruits Resp Effort & Inspection: normal respiratory effort and not tachypneic Auscultation: no crackles, no rales, no rhonchi and no wheezes Cardio Rate: regular rate Rhythm: regular rhythm Heart sounds: no murmurs and normal S1 and S2 GI Palpation (GI): Soft to palpation, nontender, no hepatomegaly and no splenomegaly Auscultation: normal bowel sounds Skin General skin exam: no rashes or lesions noted and dry skin Neuro General: oriented to person, oriented to place, oriented to time and CN's II-XI intact bilaterally Cranial nerves: Yes Equal, round and reactive pupils present Speech: No Abnormal speech present Gait exam (Neuro): Normal gait present Motor exam (neuro): no tremor noted Extrem Right upper extremity: full ROM Left upper extremity: full ROM Right lower extremity: full ROM; no edema Left lower extremity: full ROM; no edema Psych Mental Status: mental status grossly normal Speech and movement: Normal speech and movement present Affect: normal affect Attitude: cooperative Thought process: Normal thought process present Results Reviewed Results Reviewed: Laboratory Tests 10/19/24 10/19/24 10:59 11:02 WBC 5.9 RBC 4.19 L Hgb 13.6 L Hct 39.4 L MCV 94.0 MCH 32.5 MCHC 34.5 RDW 12.9 Plt Count 246 MPV 10.5 Immature Gran % (Auto) 0.3 Neut % (Auto) 64.6 Sodium 140 Potassium 4.2 Chloride 107 Carbon Dioxide 25 Anion Gap 12 BUN 10 Creatinine 0.74 Estim Creat Clear Calc Not Reportable Estimated GFR > 60 Fasting Glucose 89 Calcium 9.3 Total Bilirubin 0.6 AST 57 H ALT 45 H Alkaline Phosphatase 41 Total Protein 7.1 Albumin 4.5 Triglycerides 87 Cholesterol 159 LDL Cholesterol, Calc 106 H HDL Cholesterol 36 L 25-OH Vitamin D Total 13.1 L TSH 0.66 Urine Color Yellow Urine Appearance Clear Urine pH 7.5 Ur Specific Dow 1.020 Urine Protein Trace Urine Glucose (UA) Negative Urine Ketones Trace Urine Blood Negative Urine Nitrite Negative Ur Leukocyte Esterase Negative Coding Level of Care Code Est Pt Level 3 (86126) Diagnoses Seizure R56.9 Anemia, unspecified type D64.9 Anemia type: unspecified type Vitamin D deficiency E55.9 Hyperlipidemia, unspecified hyperlipidemia type E78.5 Hyperlipidemia type: unspecified Time Spent (min) 37 Assessment & Plan Assessment & Plan (1) Seizure: Code(s): R56.9 - Unspecified convulsions Category: Medical (2) Anemia: Code(s): D64.9 - Anemia, unspecified Category: Medical Qualifiers: Anemia type: unspecified type Qualified Code(s): D64.9 - Anemia, unspecified (3) Vitamin D deficiency: Code(s): E55.9 - Vitamin D deficiency, unspecified Category: Medical (4) HLD (hyperlipidemia): Code(s): E78.5 - Hyperlipidemia, unspecified Category: Medical Qualifiers: Hyperlipidemia type: unspecified Qualified Code(s): E78.5 - Hyperlipidemia, unspecified Plan The patient will continue to be monitored for seizure activity, with a follow-up planned in three months to assess his progress and medication efficacy. Liver enzymes will be re-evaluated in three months to ensure they are within normal limits, and the patient is advised to reduce alcohol consumption to mitigate any potential impact on liver function. Vitamin D supplementation is recommended to address the deficiency, and the patient is encouraged to obtain this [id number] if insurance does not cover it. For sleep disturbances, the patient may try a higher dose of melatonin, ensuring it does not interact with his current medications. A letter will be provided to facilitate his return to work, contingent upon remaining seizure-free for the required duration. Patient was informed and verbally consented to the use of an ambient scribe for clinic note documentation during this visit. Orders: Orders Complete Blood Count Auto Diff 3 Months D64.9 - Anemia, unspecified, R56.9 - Unspecified convulsions, E78.5 - Hyperlipidemia, unspecified, E55.9 - Vitamin D deficiency, unspecified IRON PROFILE 3 Months D64.9 - Anemia, unspecified, R56.9 - Unspecified convulsions, E78.5 - Hyperlipidemia, unspecified, E55.9 - Vitamin D deficiency, unspecified TSH reflex Free T4 3 Months D64.9 - Anemia, unspecified, R56.9 - Unspecified convulsions, E78.5 - Hyperlipidemia, unspecified, E55.9 - Vitamin D deficiency, unspecified UA CC w/rflx Micro + Cult 3 Months D64.9 - Anemia, unspecified, R56.9 - Unsp ecified convulsions, E78.5 - Hyperlipidemia, unspecified, E55.9 - Vitamin D deficiency, unspecified Vitamin D 25-OH Total 3 Months D64.9 - Anemia, unspecified, R56.9 - Unspecified convulsions, E78.5 - Hyperlipidemia, unspecified, E55.9 - Vitamin D deficiency, unspecified Comprehensive Veyo. Panel Fast 3 Months D64.9 - Anemia, unspecified, R56.9 - Unspecified convulsions, E78.5 - Hyperlipidemia, unspecified, E55.9 - Vitamin D deficiency, unspecified Medications: New cholecalciferol (vitamin D3) 25 mcg PO DAILY 90 caps 3RF trazodone 50 mg PO BEDTIME PRN 90 tabs 3RF sleep
--- OUTSIDE RECORDS SUMMARY | 2025-01-18 11:24 | XMS_ITS | Clinical Summary ---
Author Organization [address] [facility] Address [address] [place] [address] Phone Care Team Providers Care Liquor Store Manager Name Role Phone Physician, No Pcp [...] of 3 - 19+ 3-dose series) 2019 HIV Screening 05/19/2022 Hepatitis C Screening 05/19/2022 Social Influencers of Health Screening 05/19/2022 COVID-19 Vaccine ( - 2023-2 5 season) 2024 Depression Screening 06/16/2024 Influenza Vaccine (#1) 2025 Meningococcal ACWY Vaccine Completed 11/05/2016 HPV [...] 5 Years) and At-Risk Patients (6 to 49 Years) Aged Out No longer eligible b ased on patient's age to complete this topic RSV Immunization Patients Under 20 months Aged Out No longer eligible b ased on patient's age to complete this topic Varicella Vaccines Aged Out No longer eligible based on patient's age to complete this topic Care Teams Liquor Store Manager Relationship Specialty Start Date End Date Physician, No Pcp PCP - General 04/19/24
== END 2025-01-18 14:13 | disposition home or self-care (01) ==
DX: R56.9 Unspecified convulsions (principal); D64.9 Anemia, unspecified; E55.9 Vitamin D deficiency, unspecified; E78.5 Hyperlipidemia, unspecified

== ENCOUNTER → 2025-01-18 10:42 | Outpatient (BNVA) | payer OTHER, SELFPAY | PROVIDERS: PCP Internal Medicine | DX: E55.9 Vitamin D deficiency, unspecified (principal); F90.9 Attention-deficit hyperactivity disorder, unspecified type; D64.9 Anemia, unspecified; E78.5 Hyperlipidemia, unspecified; G40.909 Epilepsy, unspecified, not intractable, without status epilepticus | CPT/HCPCS: 99212 ==

== ENCOUNTER 2025-04-25 11:26 | Outpatient (AMB) | payer OTHER, SELFPAY ==
--- NOTE | 2025-04-25 11:32 | MHC.PC.OV ---
Vital Signs 04/25/25 11:33 Height 5 ft 4 in Weight 155 lb 8 oz BMI 26.7 BP 122/64 Blood Pressure Location Lt brachial Position Sitting Pulse 81 Pulse Source Pulse Oximeter Temp 97.3 F Temp Source Temporal Artery Scan Pulse Oximetry (%) 97 Oxygen Delivery Method Room Air Intake Visit Reasons: sz/htn/hld/vit D Intake Note: Patient is here to follow up on SZ, HTN, HLD, Vit D. Test Architect Required: No Sas Developer: Not Required per policy Accompanied by: Self / Same As Patient Allergies No Known Allergies Allergy (Verified 04/25/25 11:41) Medication List - Last Reconciled 04/25/25 by GENESIS Woody cholecalciferol (vitamin D3) 25 mcg PO DAILY divalproex ER (Depakote ER) 500 mg PO BID 90 days lacosamide 200 mg PO BID midazolam (Nayzilam) intranasal perampanel (Fycompa) 2 mg PO DAILY trazodone 50 mg PO BEDTIME PRN Tobacco use date assessed: 04/25/25 Dental Screening Dental Screen Date: 01/18/25 HPI sz/htn/hld/vit D HPI Details The patient is a 24-year-old male presenting for a follow-up visit to review lab results and manage his chronic conditions. The patient did not complete his pre-ordered labs as yet and was encouraged to get this evelin. The patient has a history of seizures and reports a recent episode at work. He recently saw his neurologist in [place] who made changes to his medication, though the patient is unsure of the specifics. He reports feeling well since the medication adjustment. Previous lab work revealed slightly elevated liver enzymes and a low vitamin D level. The patient reports he has been taking vitamin D supplements every morning. Reports that his still drinking his usual amount of alcohol, and reports that this is mostly on the weekends. FORMERLY [facility], [facility] Medical History Seizure Surgical History No significant past surgical history Family History Father No problems noted. Mother No problems noted. Social History (Reviewed 05/03/25 @ 07:29 by PARISH Woody Housing: Apartment Alcohol intake: current Alcohol intake frequency: a few times a week Patient Tobacco Use Status: Never used Tobacco e-Cigarette/Vaping Use: Currently Using Frequency of e-Cigarette/Vaping Use: Daily Second Hand Smoke Exposure: No Substance Use Type: Marijuana service: No Current occupational status: employed Cognitive needs: No Hearing needs: No Vision needs: Yes (glasses) Questionnaire PHQ-9 Over the last 2 weeks, how often have you been bothered by any of the following problems? Depression Screening Interpretation: Positive Depression Screening Done: Yes Source: Developed by Drs. Ben Osullivan, Jaqui Delgado, Garland Villa and colleagues, with an educational stuart from [employer]. Thrive Questionnaire Date Thrive assessed: 10/18/24 I am a: Patient What is your living situation today?: I have a steady place to live Within the past 12 months, did the food you bought not last and you didn't have the money to get more?: Sometimes True Within the past 12 months, did you worry whether your food would run out before you got money to buy more?: Sometimes True Do you have trouble paying for medicines?: No Do you have trouble getting transportation to medical appointments?: No Do you have trouble paying your heating and electricity bill?: I choose not to answer this question Do you have trouble taking care of your child, family member or friend?: I choose not to answer this question Do you have trouble with day-to-day activities such as bathing, preparing meals, shopping, managing finances, etc.?: No Are you currently unemployed and looking for a job?: Yes Are you interested in more education?: No Please select the resources that you would like help with: Food Currently or been in a relationship where the following occur: No concerns reported THRIVE Score: 2 ROBYN-7 AMB Questionnaire ROBYN-7 Date ROBYN - 7 assessed: 01/18/25 Source: Developed by Drs. Ben Osullivan, Garland Kilpatrick and colleagues, with an educational stuart from [employer]. Review of Systems Const Denies headache(s) Eyes Denies loss of vision ENT Denies vertigo, Denies dizziness, Denies headache(s) and Denies sore throat Card Denies chest pain, Denies leg edema and Denies lightheadedness Resp Denies cough, Denies hemoptysis and Denies wheezing GI Denies abdominal pain, Denies melena, Denies constipation, Denies diarrhea and Denies vomiting Denies dysuria, Denies urinary frequency and Denies urinary urgency Musc Denies arthralgias, Denies joint swelling, Denies numbness and Denies tingling Neuro Denies Abnormal speech present, Denies behavioral changes, Denies vertigo, Denies dizziness, Denies headache(s), Denies loss of vision, Denies memory loss, Denies numbness and Denies tingling Psych Denies anxiety, Denies behavioral changes, Denies depression, Denies memory loss and Denies panic attacks Dakota/Lymph Denies easy bleeding and Denies easy bruising Aller/Immun Denies wheezing Physical exam (Primary Care) Vital Signs: Last Vital Signs Temp 97.3 F 04/25/25 11:33 Pulse 81 04/25/25 11:33 BP 122/64 04/25/25 11:33 Pulse Ox 97 04/25/25 11:33 Oxygen Delivery Method Room Air 04/25/25 11:33 BMI result Body Mass Index 26.7 Tobacco/Smoking Status: Tobacco use Status Tobacco use date assessed 04/25/25 04/25/25 11:38 Patient Tobacco Use Status Never used Tobacco 04/25/25 11:38 e-Cigarette/Vaping Use Currently Using 04/25/25 11:38 Depression Screening Interpretation: Positive Thrive Assessment: Date of Thrive Assessment Date Thrive assessed 10/18/24 04/25/25 11:38 Currently or been in a relationship where the following occur: No concerns reported Const General: healthy appearing, no acute distress, alert and awake Nutritional Appearance: well nourished Orientation/consciousness: oriented to person, oriented to place and oriented to time HENMT Ears: TM's normal bilaterally General nose exam: Normal nasal mucous membranes and turbinates present Eyes Conjunctivae: conjunctivae normal Sclerae: sclerae normal Pupils: Equal, round and reactive pupils present Neck Neck: Yes no lymphadenopathy and Yes no JVD Thyroid: Thyroid normal Carotids: no bruits Resp Effort & Inspection: normal respiratory effort and not tachypneic Auscultation: no crackles, no rales, no rhonchi and no wheezes Cardio Rate: regular rate Rhythm: regular rhythm Heart sounds: no murmurs and normal S1 and S2 GI Palpation (GI): Soft to palpation, nontender, no hepatomegaly and no splenomegaly Auscultation: normal bowel sounds Skin General skin exam: no rashes or lesions noted and dry skin Neuro General: oriented to person, oriented to place, oriented to time and CN's II-XI intact bilaterally Cranial nerves: Yes Equal, round and reactive pupils present Speech: No Abnormal speech present Gait exam (Neuro): Normal gait present Motor exam (neuro): no tremor noted Extrem Right upper extremity: full ROM Left upper extremity: full ROM Right lower extremity: full ROM; no edema Left lower extremity: full ROM; no edema Psych Mental Status: mental status grossly normal Speech and movement: Normal speech and movement present Affect: normal affect Attitude: cooperative Thought process: Normal thought process present Coding Level of Care Code Est Pt Level 4 (62513) Diagnoses Seizure R56.9 Anemia, unspecified type D64.9 Anemia type: unspecified type Vitamin D deficiency E55.9 Hyperlipidemia, unspecified hyperlipidemia type E78.5 Hyperlipidemia type: unspecified Alcohol use F10.90 Elevated liver enzymes R74.8 Time Spent (min) 36 Assessment & Plan Assessment & Plan (1) Seizure: Code(s): R56.9 - Unspecified convulsions Category: Medical Plan: The patient reported a recent breakthrough seizure at work. He has since followed up with his neurologist, who made medication changes, though the patient is awaiting specifics on the adjustments. He reports feeling well on the new regimen. The plan is to continue management as directed by neurology and update the medication list upon receiving the new information from his neurologist. Encouraged the patient to refrain from drinking alcohol because this lower the seizure threshold. (2) Anemia: Code(s): D64.9 - Anemia, unspecified Category: Medical Qualifiers: Anemia type: unspecified type Qualified Code(s): D64.9 - Anemia, unspecified Plan: RBC 4.19, H&H 13.6/39.4 on 10/2024, mild normocytic, normochromic anemia. Iron panel , folate and B12 was ordered to further evaluate. Encouraged the patient to complete preordered labs. We will continue to monitor CBC (3) Vitamin D deficiency: Code(s): E55.9 - Vitamin D deficiency, unspecified Category: Medical Plan: Continue cholecalciferol 25 mcg daily (4) HLD (hyperlipidemia): Code(s): E78.5 - Hyperlipidemia, unspecified Category: Medical Qualifiers: Hyperlipidemia type: unspecified Qualified Code(s): E78.5 - Hyperlipidemia, unspecified Plan: tri 87/total chol 159/ldl 106/ hdl 36 on 10/2024-encouraged the patient to complete follow up labs Discussed lifestyle modifications including dietary changes and physical activity We will continue to monitor lipid panel (5) Alcohol use: Code(s): F10.90 - Alcohol use, unspecified, uncomplicated Category: Social Hx Plan: Encouraged the patient to return from alcohol due to increase risk of seizure activity. The patient is notably irritated with this conversation and remained silent. (6) Elevated liver enzymes: Code(s): R74.8 - Abnormal levels of other serum enzymes Category: Medical Plan: AST 57 a couple ALT 45 on October 2024 Limit to refrain from alcohol, Tylenol or drugs containing Tylenol, fatty foods Repeat CMP was ordered at previous visit, encouraged the patient to complete his labs to re-evaluate his levels
[2025-04-25 11:33] VITALS: BP 122/64; PULSE 81; TEMP 36.3; O2SAT 97; BMI 26.7
--- OUTSIDE RECORDS SUMMARY | 2025-04-25 13:48 | XMS_ITS | Clinical Summary ---
Author Organization [address] [facility] Address [address] [place] [address] Phone Care Team Providers Care Leave Coordinator Name Role Phone Physician, No Pcp Primary [...] 05/19/2022 Social Influencers of Health Screening 05/19/2022 Depression Screening 06/16/2024 COVID-19 Vaccine ( - 2023-2 5 season) 2025 Influenza Vaccine (#1) 2025 RSV Immunization Adult Patients (1 - 1-dose 75+ series) 2075 Meningococcal ACWY Vaccine Completed 11/05/2016 HPV Vaccines [...] age to complete this topic Care Teams Leave Coordinator Relationship Specialty Start Date End Date Physician, No Pcp PCP - General 04/19/24
== END 2025-04-25 12:40 | disposition home or self-care (01) ==
LOC: HO.HMCH 11:26
DX: R56.9 Unspecified convulsions (principal); D64.9 Anemia, unspecified; E55.9 Vitamin D deficiency, unspecified; E78.5 Hyperlipidemia, unspecified; F10.90 Alcohol use, unspecified, uncomplicated; R74.8 Abnormal levels of other serum enzymes

== ENCOUNTER → 2025-04-25 11:26 | Outpatient (BNVA) | payer OTHER, SELFPAY | DX: R74.8 Abnormal levels of other serum enzymes (principal); R56.9 Unspecified convulsions; E55.9 Vitamin D deficiency, unspecified; D64.9 Anemia, unspecified; E78.5 Hyperlipidemia, unspecified; F10.90 Alcohol use, unspecified, uncomplicated | CPT/HCPCS: 99212 ==